=== PATIENT | female | born 1955 | race Caucasian/White ===

== ENCOUNTER 2018-07-16 20:00 | Emergency (ER) | payer OTHER, SELFPAY ==
[2018-07-16 20:01] VITALS: BP 162/83; PULSE 80; RESP 16; TEMP 36.6; O2SAT 94; BMI 22.1
[2018-07-16 20:51] VITALS: PULSE 78; RESP 12
[2018-07-16] MEDS: Ipratropium/Albuterol Sulfate 3 ML AMPUL.NEB INHALATION (20:51)
[2018-07-16 20:56] VITALS: BP 162/83; BP 167/90; PULSE 78; RESP 12; RESP 14; TEMP 36.6; O2SAT 93; O2SAT 94
[2018-07-16] MEDS: Morphine 4 MG/ML Syringe IV (21:03)
[2018-07-16 21:07] VITALS: BP 167/90; PULSE 78; RESP 14; TEMP 36.6; O2SAT 94
[2018-07-16 21:08] LABS: Absolute Lymphocyte Count 2.34 X10^3/ul (0.83-4.51); Absolute Neutrophil Count 8.9 X10^3/uL (2.0-7.7); Basophil# 0.03 X10^3/uL; Basophil% 0.2 % (0-1); Differential Indicated SCAN CRITERIA MET; Eosinophil# 0.02 X10^3/uL; Eosinophils% 0.2 % (0-5); Hemoglobin 15.8 g/dl (12.0-15.0); Lymphocyte # 2.34 X10^3/ul (4.0); Lymphocyte % 19.5 % (19-41); Mean Corp Hgb Conc 35.1 g/gl (32-36); Mean Corpuscular Hgb 31.6 pg (27.0-32.0); Mean Platelet Vol. 10.8 fl (6.2-12.0); Monocyte# 0.73 X10^3/uL; Monocyte% 6.1 % (0-10); Neutrophil # 8.87 X10^3/uL (2.7-7.7); Neutrophil % 73.7 % (47-70); POSITIVE COUNT NO; POSITIVE DIFFERENTIAL NO; POSITIVE MORPHOLOGY YES; Platelet Count 266 K/mm3 (150-450); RBC Distribution Width SD 39.1 fl (35.1-43.9)
[2018-07-16 21:09] LABS: Anion Gap 10 (5-15); BUN 12 mg/dL (7-18); Calcium,Total 8.8 mg/dL (8.5-10.1); Chloride 95 mmol/L (98-107); Creatinine, Serum 0.63 mg/dL (0.55-1.02); EST Glomerular Filtration Rate 102 mL/min (>60); Est Glom Filt Rate - Afr Amer 123 mL/min (>60); Estimated Creatinine Clearance 70.76 ml/min; Glucose 124 mg/dL (74-106); Sodium Level 133 mmol/L (136-145)
--- NOTE | 2018-07-16 21:10 | RAD_ITS ---
STUDY: X-RAY CHEST REASON FOR EXAM: Female, 62 years old. Right flank pain and nausea TECHNIQUE: PA and lateral COMPARISON: None. FINDINGS: Lungs are hyperinflated but clear.. There is no demonstrated pleural abnormality. Normal size heart. Normal mediastinum and darwin. Normal visualized pulmonary arteries. Normal visualized aortic arch and descending thoracic aorta. Dorsal spine demonstrates mild spondylosis.. Normal visualized ribs, clavicles, and shoulders. There is no demonstrated abnormality of the visualized soft tissue structures of the upper abdomen. RAD/Chest PA and Lateral IMPRESSION: Mild hyperinflation. No acute disease Electronically Signed: Sammy Delacruz MD at 21:55 EST , Service support ,
[2018-07-16 21:31] LABS: Differential Comment SCANNED
[2018-07-16 21:34] LABS: Bacteria 0 SEEN /hpf (None Seen); Color, Urine Yellow (Yellow); Glucose, Dipstick Normal (Normal); Ketone-Dipstick Negative (Negative); Leukocyte Esterase-Dipstick 25 /ul (Negative); Mucous, Urine 0 SEEN /hpf (<or=2+); Nitrite-Dipstick Negative (Negative); Occult Blood-Urine 25 /ul (Negative); Protein-Dipstick 30 mg/dl (Negative); Red Blood Cells-Urine 0 SEEN /hpf (0-5); Specific Gravity, Urine 1.015 (1.002-1.030); Urine Bilirubin Dipstick Negative (Negative); Urine Clarity Clear (Clear); Urine Urobilinogen Normal (Normal); Urine pH 6.5 (5.0 - 8.0)
[2018-07-16 21:50] LABS: Squamous Epithelial Cells - UA 0-5 SEEN /hpf (5-10); White Blood Cells 0-5 SEEN /hpf (0-5)
--- NOTE | 2018-07-16 22:04 | CT_ITS ---
STUDY: CT ABDOMEN AND PELVIS WITHOUT CONTRAST REASON FOR EXAM: Female, 62 years old. Right flank pain RADIATION DOSAGE (If Supplied By Facility): CTDIvol = ( 6.54 ) mGy, DLP = ( 269.72 ) mGycm TECHNIQUE: Transaxial images were obtained from the dome of the diaphragm to the symphysis pubis without oral contrast, and without intravenous contrast. Sagittal and coronal images were reconstructed. Individualized dose optimization techniques were used for this CT. COMPARISON: None. FINDINGS: The visualized lung bases are unremarkable. The visualized portions of the heart are within normal limits. Small hiatal hernia is present. Elongation of the right lobe of the liver which may be consistent with normal variant. Liver is homogeneous attenuation without mass or bile duct dilatation. Tiny calcified gallstone without evidence for acute cholecystitis Normal spleen. Normal pancreas. Normal bilateral adrenal glands. Normal right kidney. Normal left kidney. Normal visualized stomach. Normal small intestine. Diffuse fecal retention seen within the colon.. No evidence for acute appendicitis. Atherosclerotic changes of the aorta without evidence for aneurysm. Normal inferior vena cava. Normal retroperitoneum. Normal urinary bladder. There is increased thickening of the right transverse rectus sheath demonstrating slightly hyperattenuated appearance consistent with rectus sheath hematoma.. There is also a small amount of free hemorrhage within the prevesical space on the right Normal osseous structures. CT/Abdomen/Pelvis without Cont IMPRESSION: Right transverse rectus sheath intramuscular hematoma and small amount of hemorrhage within the prevesical space on the right. Cholelithiasis without evidence for acute cholecystitis Electronically Signed: Sammy Delacruz MD at 23:44 EST , Service support ,
[2018-07-16 22:26] VITALS: BP 146/88; PULSE 77; RESP 19; TEMP 37.1; O2SAT 93
[2018-07-16 23:42] VITALS: BP 136/78; PULSE 76; RESP 20; TEMP 36.7; O2SAT 93
--- NOTE | 2018-07-17 | ED.VISSUMM ---
- ER Visit Summary Date of Service: 07/17/18 Chief Complaint: Abdominal pain and cough History of Present Illness: The patient is a 62 F who presents with abdominal pain and cough that began yesterday. Patient states the pain is sharp in her right lower abdomen. Patient admits to some nausea but denies any vomiting. Patient denies any diarrhea. Patient denies any urinary complaints. Patient admits to some subjective chills. Patient states she is coughing up some clear sputum. She states the pain does radiate to her lower back. Physical Examination: All signs are stable. Patient is afebrile. Patient is in no acute distress. Oral mucosa is pink and moist. Neck is supple. Trachea is midline. There is no JVD noted. Heart was regular rate and rhythm. Lungs showed a few scattered rhonchi but there is good respiratory effort. There are no retractions noted. Abdomen is soft. There is tenderness over the right lower quadrant. There is no rebound or guarding noted. Cranial nerves II through XII are intact. There are no focal motor or sensory deficits noted. The remaining physical exam is within normal limits. Test Results: CBC showed a mild leukocytosis. Basic metabolic profile was normal. Urinalysis does not show any evidence of urinary tract infection. CT scan of the abdomen and pelvis was obtained. There is a rectus hematoma. There is no acute intra-abdominal abnormality noted. Emergency Department Course and Treatment: Patient was given IV fluids and Toradol here. Patient was given a prescription for Tessalon to help with her cough. Patient was instructed to use ice to the lower abdomen. Patient was instructed to follow-up with her primary care physician in 5-7 days. Patient understood and was agreeable with the plan. All questions were answered. Disposition: Discharge home Impression: 1. Rectus sheath hematoma 2. Upper respiratory infection This note was generated with [employer] dictation software. It may contain incorrect words, spelling, and punctuation that were not noted in review of the chart prior to signing ED Disposition - Plan for ED Patient: Disposition: Home or Assisted Living Diagnosis: Rectus sheath hematoma Instructions: ED Hematoma, ED Strain Abdominal Muscle Prescriptions: Benzonatate [Tessalon Perle] 200 mg PO TID PRN PRN #20 cap PRN Reason: Cough Referrals: Vasiliy Loredo MD [Primary Care Provider] -
[2018-07-17 00:14] VITALS: BP 140/85; PULSE 88; RESP 19; O2SAT 92
== END 2018-07-17 00:15 | disposition home or self-care (01) ==
PROVIDERS: Emergency Provider Emergency Medicine
DX: S36.62XA Contusion of rectum, initial encounter (principal); X58.XXXA Exposure to other specified factors, initial encounter; Y93.89 Activity, other specified; Y92.9 Unspecified place or not applicable; Y99.9 Unspecified external cause status; J06.9 Acute upper respiratory infection, unspecified; I10 Essential (primary) hypertension; I25.10 Atherosclerotic heart disease of native coronary artery without angina pectoris; Z95.5 Presence of coronary angioplasty implant and graft; F17.210 Nicotine dependence, cigarettes, uncomplicated; Z87.01 Personal history of pneumonia (recurrent)
CPT/HCPCS: 71046; 74176; 80048; 81001; 85025; 94640; 99284; A4216

== ENCOUNTER 2020-04-05 07:48 | Day surgery (SDC) | payer OTHER, SELFPAY ==
--- NOTE | 2020-04-05 | IMM_PTH ---
PATIENT: CAROLYN HARTMANN [place] [facility] [id number] AGE/SX: 64/F ROOM: RE04/05/[address]: Dr. Geovany Vegas MD : 1955 BED: DIS: 04/05/2020 SPEC #: [id number] RECD: 04/06/20 13:17 STATUS: CRISTOFER REQ #: [id number] DEVENDRA: 04/05/20 00:[address]: Geovany Vegas DEPT: IMMUNOHISTOCHEMISTRY RECD BY: Faith Ibarra ENTERED: 04/06/20 13:18 SP TYPE: IMMUNO OTHR DR: Dr. Vasiliy Escamilla MD Tissues: Larynx, NOS Procedures: p16 (initial) KI-67 (add) PHYSICIAN & INSTITUTION [place] [id number] SPECIMEN INFORMATION: Tissue Source: Laryngeal mass Clinical Info: GERD, neoplasm of larynx Specimen Number: [id number] CPT code: 95204, 41439 METHODOLOGY: Deparaffinized sections of prefer/formalin-fixed tissue or PAP/DQ stained slides are incubated with monoclonal/polyclonal antibodies/oligonucleotide probes. Localization is made via biotin free immunoperoxidase method. Appropriate controls are performed and reacted as expected. Results on target cell population are indicated in the following table: RESULTS: ANTIBODY / CLONE RESULT P16 (E6H4) negative Ki-67 (30-9) positive, moderate These tests were developed and their performance characteristics determined by [facility]. They may not have been cleared or approved by the U.S. Food and Drug Administration. The FDA has determined that such clearance or approval is not necessary. The above immunohistochemical/dualISH markers are ordered and reviewed by the Pathologist. INTERPRETATION: Laryngeal mass, biopsy: Focal moderate squamous dysplasia. GENESIS:andrzej 04/07/20
[2020-04-05 08:15] VITALS: BP 129/81; PULSE 66; RESP 16; TEMP 36.8; O2SAT 100; BMI 21.4
[2020-04-05] MEDS: Lactated Ringers 1,000 ML 100 ML IV (08:29)
--- NOTE | 2020-04-05 09:30 | MASS_PTH ---
PATIENT: CAROLYN HARTMANN LOC: [facility] – [place] U#:[id number] AGE/SX: 64/F ROOM: RE04/05/[address]: Dr. Geovany Vegas MD : 1955 BED: DIS: 04/05/2020 SPEC #: [id number] RECD: 04/05/20 12:02 STATUS: CRISTOFER ANGIE #: [id number] DEVENDRA: 04/05/20 09:[address]: Geovany Vegas DEPT: SURGICAL PATHOLOGY RECD BY: Madelin Gaines ENTERED: 04/05/20 13:04 SP TYPE: Mass OTHR DR: Dr. Vasiliy Escamilla MD Tissues: Larynx, NOS Procedures: Surgery Specimen Level IV HEADER OPERATION: Direct laryngoscopy with biopsy PRE-OP DIAGNOSIS: GERD, neoplasm of larynx TISSUE SUBMITTED: Laryngeal mass MICROSCOPIC DIAGNOSIS Laryngeal mass, biopsy: A polypoid fragment of respiratory mucosa with focal moderate squamous dysplasia. Subepithelial oncocytic cyst. See comment. GENESIS:andrzej 04/06/20 COMMENT Results of immunohistochemistry ([id number]) for surrogate HPV marker (p16) will be reported separately. MICROSCOPIC DESCRIPTION Slides are reviewed. GROSS DESCRIPTION Received in fixative is one container labeled with the patient's name and designated laryngeal mass. The specimen consists of a piece of muse polypoid tissue measuring 1.5 x 0.5 x 0.2 cm. The specimen is totally submitted in one cassette. / GENESIS:andrzej 04/05/20 TC:5 CPT: 53282
[2020-04-05] MEDS: Oxymetazoline 0.05% 1 SPRAY SPRAY.BTL 15 SPRAY (09:40)
--- NOTE | 2020-04-05 09:53 | DCINST_ITS ---
You will use the following diet at home:: No restrictions Your food should be the consistency of: Regular Discharge Activity: Return to Normal Activity Call your doctor if your incision/area has: Increased Pain/ Swelling Allergies/Adverse Reactions: Allergies No Known Allergies Allergy (Verified 04/05/20 08:12) Medications to take at Discharge Albuterol IH (ProAir) [Proair Hfa (SP)Vent Pts] 2 puff INHALATION Q4H PRN PRN 07/16/18 Aspirin [Aspirin, Baby] 81 mg PO DAILY@0800 07/16/18 Atenolol [Tenormin (Beta Aniket)] 50 mg PO DAILY 07/16/18 Pravastatin [Pravachol] 80 mg PO DAILY 07/16/18 Triamterene 37.5MG/Hctz 25MG [Maxzide 37.5 mg-25 mg Tablet] 1 tablet PO DAILY 07/16/18 Guaifenesin/Pseudoephedrne HCl [Mucinex D ER 600-60 mg Tablet] 1 ea PO DAILY 03/28/20 Omeprazole 40 mg PO QHS 03/28/20 Primary Care Physician: Vasiliy Escamilla MD [Primary Care Provider] - Test Results: Test results from this visit will be discussed in further detail at your follow- up appointment, if applicable. Please Follow Up With: Bobby Vegas MD When: 1 month
--- NOTE | 2020-04-05 09:55 | PCM.OPRPT ---
Problem List (1) Laryngeal mass Status: Chronic Report of Operation Date of Procedure: 04/05/20 Pre-Operative Diagnosis: laryngeal mass Post-Operative Diagnosis: laryngeal mass Surgery/Procedure Performed:: direct laryngoscopy with biopsy and use of operative telescope Type of Anesthesia:: General Description of Procedure: on the day of the procedure, after appropriate informed consent was obtained, the patient was brought to the operating room and placed in supine position on the operating table. she was placed under general endotracheal anesthesia by the anesthesiologist. the endotracheal tube was secured, the eyes were taped. the table was rotated 90 degrees toward the surgeon. a tooth guard was placed. a kun laryngoscope was inserted into the oral cavity with care not to damage the lips teeth or gums. it was suspended from the rodriguez stand. a good glottic view was obtained. a 2cm cyst was coming from the anterior ventricle / ventricular fold on the right. a cupped biting forceps was used to remove it. a mucoid material was suctioned from its base. there were no other masses. she has claudia edema. hemostasis was achieved with oxymetazoline-soaked pledgets. the patient was awoken and transferred to the PACU in stable condition.
[2020-04-05 09:59] VITALS: BP 115/83; BP 129/81; PULSE 67; RESP 20; TEMP 36.1; O2SAT 95
[2020-04-05 10:15] VITALS: BP 118/76; BP 121/82; BP 129/81; PULSE 72; PULSE 77; RESP 20; O2SAT 95; O2SAT 97
[2020-04-05 10:38] VITALS: BP 121/77; BP 129/81; PULSE 72; RESP 18; TEMP 36.5; O2SAT 95
[2020-04-05 11:03] VITALS: BP 129/81
== END 2020-04-05 11:06 | disposition home or self-care (01) ==
LOC: SDC 07:49 → AC 07:49
PROVIDERS: PCP Family Medicine; Referring Provider Otolaryngology; Visit Provider Otolaryngology
PROC: 0CJS8ZZ Inspection of Larynx, Via Natural or Artificial Opening Endoscopic (ICD-10-PCS; CPT 31575; principal; 2020-04-05 09:25)
DX: J38.7 Other diseases of larynx (principal); K21.9 Gastro-esophageal reflux disease without esophagitis; E78.00 Pure hypercholesterolemia, unspecified; I10 Essential (primary) hypertension; I25.2 Old myocardial infarction; F17.210 Nicotine dependence, cigarettes, uncomplicated
CPT/HCPCS: 00320; 31536; 87426; 88305; 88307; 88341; 88342; C9803; J7120; J2405

== ENCOUNTER → 2022-10-05 | Outpatient (CLI) | payer OTHER, SELFPAY ==
--- NOTE | 2022-10-05 13:06 | BI_ITS ---
MAMMOGRAPHY - BILATERAL SCREENING REASON FOR EXAM: Female, 66 years old. Routine annual screening examination. PERTINENT HISTORY: Grandmother with breast cancer. Aunt with breast cancer. TECHNIQUE: Digital bilateral breast jose guadalupe (3D mammographic acquisition) in the CC and MLO projections. 2-D mediolateral oblique (MLO) and craniocaudad (CC) views of both breasts were obtained. CAD: Full Field Digital Mammography with Computer Added Detection was performed. COMPARISON: No comparison mammograms available at this time. If any prior films become available, an addendum to this report can be generated. FINDINGS: Breast Composition: The breasts are heterogeneously dense, which may obscure small masses. There are no dominant masses or suspicious calcifications. There is a partially calcified nodule measuring 8.6 mm x 9.8 mm in the upper central portion of the right breast. Correlation with ultrasound is recommended. No other significant abnormalities are identified. BI/SCRN MAMM (CAD)W/JOSE GUADALUPE BILAT IMPRESSION: Partially calcified nodule measuring 8.6 mm x 9.8 mm in the upper central portion of the right breast. Correlation with ultrasound is recommended. ASSESSMENT CATEGORY: BIRADS Category 0: Incomplete. Need additional imaging evaluation. A letter regarding these results will be sent to the patient by the facility within 30 days. Approximately 10% of breast cancers are not detected by mammography. A normal mammogram should not delay biopsy of a clinically suspicious abnormality. [id number] Electronically Signed: Butch Cain MD at 10:30 EDT ,
== END | disposition home or self-care (01) ==
LOC: OPBI 13:02
PROVIDERS: PCP Family Medicine; Referring Provider Family Medicine; Visit Provider Family Medicine
DX: Z12.31 Encounter for screening mammogram for malignant neoplasm of breast (principal); Z80.3 Family history of malignant neoplasm of breast
CPT/HCPCS: 77063; 77067

== ENCOUNTER → 2022-10-26 | Outpatient (CLI) | payer OTHER, SELFPAY ==
--- NOTE | 2022-10-26 08:55 | US_ITS ---
STUDY: ULTRASOUND BREAST - RIGHT REASON FOR EXAM: Female, 66 years old. Abnormal screening mammogram. TECHNIQUE: Axial and longitudinal images of the RIGHT breast were performed with a high resolution ultrasound transducer. # OF IMAGES: 16 COMPARISON: Comparison is made with prior mammogram dated October 05, 2022. FINDINGS: RIGHT Breast: The mammographic abnormality corresponds to a 9 mm x 9 mm x 6 mm hypoechoic nodular density at the 12:00 position breast at 3 cm from the nipple. Calcification is seen within it. A biopsy is recommended. US/Breast Limited Unilateral IMPRESSION: The mammographic abnormality corresponds to a 9 mm x 9 mm x 0.6 mm hypoechoic nodule with calcifications at the 12:00 position breast at 3 cm from nipple. A biopsy is recommended. ASSESSMENT CATEGORY: BIRADS Category 4: Suspicious - Biopsy Should Be Considered. A letter regarding these results will be sent to the patient by the facility within 30 days. Electronically Signed: Butch Cain MD at 15:37 EDT ,
== END | disposition home or self-care (01) ==
PROVIDERS: PCP Family Medicine; Referring Provider Family Medicine; Visit Provider Family Medicine
DX: N63.12 Unspecified lump in the right breast, upper inner quadrant (principal)
CPT/HCPCS: 76642